=== PATIENT | female | born 1985 | race Caucasian/White ===

== ENCOUNTER 2025-06-11 13:40 | Outpatient (CLI) | payer OTHER | END 2025-06-11 13:41 | disposition home or self-care (01) | LOC: CSHMAMMO 13:40 | PROVIDERS: ATTEND Internal Medicine Hospice and Palliative Medicine | DX: R92.8 Other abnormal and inconclusive findings on diagnostic imaging of breast (principal) | CPT/HCPCS: G0279 ==